=== PATIENT | male | born 1960 | race African-American/Black ===

== ENCOUNTER → 2018-08-23 | Day surgery (SDC) | payer BC ==
[~2018-08-23] MED LIST: AMLODIPINE BESY10 MG PO; ASPIR 8181 MG PO; CRESTOR5 MG PO; FENTANYL CITRATE/PF 100MCG/2 ML INJ ONE; MIDAZOLAM HCL 2 MG/2 ML VIAL ONE; PROPOFOL IV EMULSION 10 MG/ML 50 ML VIAL ONE; VERAPAMIL ER120 MG PO; VESICARE5 MG PO
--- OUTSIDE RECORDS SUMMARY | 2018-08-23 12:54 | XMS REPORT | Clinical Summary ---
Author Author [facility] Organization [facility] Address Unknown Phone Unavailable Care Team Providers Care Second Helper Name Role Phone John Ruiz MD PCP Allergies Comments Active Allergy Reactions Severity Noted Date Morphine 04/24/2018 Medications End Date Status Medication Sig Dispensed Refills Start Date Active ranitidine (ZANTAC) 150 Take 150 mg 0 MG tablet by mouth 2 (two) times a day. Active fluticasone (FLONASE) 50 2 sprays (100 15.8 mL 0 mcg/actuation nasal spray mcg total) by 8 Each Nare route daily. Active azelastine (ASTELIN) 137 1 spray into 0 mcg (0.1 %) nasal spray each nostril 2 (two) times a day. Use in each nostril as directed 08/25/2018 Active predniSONE (DELTASONE) 5 2 tablets 15 tablet 0 mg tablet daily for 5 8 days then 1 tablet daily for 5 days 05/31/2018 Discontinued omeprazole (PriLOSEC) 40 Take 40 mg by 0 MG capsule mouth daily. 05/31/2018 Discontinued verapamil sustained Take 180 mg 0 release (CALAN-SR) 180 MG by mouth SR tablet nightly. 05/24/2018 levocetirizine (XYZAL) 5 Take 1 tablet 30 tablet 3 MG tablet (5 mg total) 8 by mouth every evening for 30 days. 05/24/2018 montelukast (SINGULAIR) Take 1 tablet 30 tablet 3 10 mg tablet (10 mg total) 8 by mouth nightly for 30 days. 05/24/2018 azelastine (ASTELIN) 137 1 spray into 30 mL 3 mcg (0.1 %) nasal spray each nostril 8 2 (two) times a day for 30 days. Use in each nostril as directed 07/29/2018 Discontinued lisinopril Take 20 mg by 5 (PRINIVIL,ZESTRIL) 20 mg mouth every 8 tablet morning. 06/30/2018 [id number] Inhale 1 puff 30 each 3 anter (TRELEGY ELLIPTA) daily for 30 8 100-62.5-25 mcg blister days. with device 06/14/2018 predniSONE (DELTASONE) 10 Po 40 mg x 3 32 tablet 0 mg tablet days, 30 mg x 8 3 days, 20 mg x 3 days 10 mg x 3 days 5 mg x 3 days 2.5 mg x 3 days 08/02/2018 predniSONE (DELTASONE) 10 Po 40 mg x 3 32 tablet 0 mg tablet days, 30 mg x 8 3 days, 20 mg x 3 days 10 mg x 3 days 5 mg x 3 days 2.5 mg x 3 days Active Problems Problem Noted Date Essential hypertension 05/31/2018 Dyspnea 04/24/2018 Chronic cough 04/24/2018 Encounters Care Team Description Date Type Specialty Sanjuana Castro MA 08/15/2018 Orders Only Pulmonology Jay Jaimes MD 08/13/2018 Refill Pulmonology Jay Jaimes MD 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 (Primary Dx); Allergic sinusitis 07/29/2018 Office Visit Pulmonology Sheri Ann MA 07/17/2018 Telephone Pulmonology Jay Jaimes MD 07/05/2018 Refill Pulmonology Jay Jaimes MD Chronic cough- improved with steroid (Primary Dx); Allergic sinusitis 06/28/2018 Office Visit PulmonJay Mejia MD 06/28/2018 Refill Pulmonology Jay Jaimes MD Chronic cough (Primary Dx); Essential hypertension 06/07/2018 Office Visit Pulmonology Sheri Ann MA 06/06/2018 Orders Only PulJay Cabral MD Chronic cough 06/05/2018 Hospital Radiology Encounter Jay Jaimes MD Chronic cough (Primary Dx); Essential hypertension 05/31/2018 Office Visit Pulmonology Jay Jaimes MD Karlberg, Karl Dyspnea, unspecified type 04/24/2018 Clinical Pulmonology Support Jay Jaimes MD Chronic cough (Primary Dx); Allergic sinusitis 04/24/2018 Office Visit Pulmonology after 08/22/2017 Family History Medical History Relation Name Comments Hypertension Mother Relation Name Status Comments Mother Social History Date Tobacco Use Types Packs/Day Years Used Never Smoker Smokeless Tobacco: Never Used Alcohol Use Drinks/Week oz/Week Comments Yes Social Sex Assigned at Date Recorded Not on file Industry Job Start Date Occupation Not on file Not on file Not on file Travel End Travel History Travel Start No recent travel history available. Last Filed Vital Signs Time Taken Vital Sign Reading 07/29/2018 2:54 PM CDT Blood Pressure 157/84 07/29/2018 2:54 PM CDT Pulse 73 07/29/2018 2:54 PM CDT Temperature 36.4 C (97.6 F) 07/29/2018 2:54 PM CDT Respiratory Rate 14 07/29/2018 2:54 PM CDT Oxygen Saturation 98% - Inhaled Oxygen - Concentration 07/29/2018 2:54 PM CDT Weight 96.2 kg (212 lb) 06/07/2018 12:13 PM CDT Height 170.2 cm (5' 7") 07/29/2018 2:54 PM CDT Body Mass Index 33.2 Plan of Treatment Care Team Description Date Type Specialty Jay Jaimes MD [address] [address] [phone] 09/09/2018 Office Visit Pulmonology Health Maintenance Due Date Last Done Comments MMR VACCINES (1 of - 1960 Standard series) VARICELLA VACCINES (1 of 1972 2 - 2-dose adolescent series) COLON CANCER SCREENING 2009 SHINGRIX VACCINE (1 of 2) 2009 INFLUENZA VACCINE 05/08/2018 HEPATITIS B VACCINES Aged Out No longer eligible based on patient's age to complete this topic IPV VACCINES Aged Out No longer eligible based on patient's age to complete this topic MENINGOCOCCAL VACCINE Aged Out No longer eligible based on patient's age to complete this topic Procedures Comments Procedure Name Priority Date/Time Associated Diagnosis CT CHEST WO CONTRAST Routine 06/05/2018 Chronic cough 3:37 PM CDT after 08/22/2017 Results * CT Chest Wo Contrast (06/05/2018 3:37 PM CDT) Narrative Performed At EXAMINATION: CT CHEST WO CONTRAST [facility] CLINICAL HISTORY: R05 Cough, chronic cough TECHNIQUE:Multiple axial CT images of the chest are obtained without the use of intravenous contrast. The lack of intravenous contrast reduces the sensitivity of the sensitivity of detecting solid organ disease and evaluating vasculature. Sagittal and coronal 3-D reformatted images were obtained. CT scans are performed using radiation dose reduction techniques.Technical factors are evaluated and adjusted to ensure appropriate moderation of exposure.Automated dose management technology is applied to adjust radiation exposure while achieving a diagnostic quality image. COMPARISON: None. FINDINGS: Lungs and large airways: Negative for interstitial lung disease or consolidation. There is a right middle lobe subpleural lung nodule measuring 5 mm (image 64, sequence 3). Pleura:No pleural effusion, pleural thickening, or pneumothorax. Heart and pericardium:Heart size is normal. No pericardial effusion. Vessels:Minimal atherosclerotic changes of thoracic aorta. Main pulmonary artery measures 24 mm. Mediastinum and eleanor:No mass or hematoma. Lymph nodes: Prominent axillary lymph nodes Chest wall:Unremarkable. Bones:No osteolytic or osteoblastic bony lesion. Upper abdomen: Small nonobstructive calculus seen within the upper pole of left kidney measuring 3.6 mm. No focal abnormality detected with limited evaluation. IMPRESSION: 1. Negative for interstitial lung disease or consolidation. 2. Mild atherosclerotic changes of thoracic aorta. 3. Mildly enlarged axillary lymph nodes, most likely benign/reactive. 4. There is a right middle lobe subpleural lung nodule measuring 5 mm (image 64, sequence 3). Finding most likely benign. [id number] Procedure Note Hm Interface, Radiology Results Incoming - 06/05/2018 4:33 PM CDT EXAMINATION: CT CHEST WO CONTRAST CLINICAL HISTORY: R05 Cough, chronic cough TECHNIQUE: Multiple axial CT images of the chest are obtained without the use of intravenous contrast. The lack of intravenous contrast reduces the sensitivity of the sensitivity of detecting solid organ disease and evaluating vasculature. Sagittal and coronal 3-D reformatted images were obtained. CT scans are performed using radiation dose reduction techniques. Technical factors are evaluated and adjusted to ensure appropriate moderation of exposure. Automated dose management technology is applied to adjust radiation exposure while achieving a diagnostic quality image. COMPARISON: None. FINDINGS: Lungs and large airways: Negative for interstitial lung disease or consolidation. There is a right middle lobe subpleural lung nodule measuring 5 mm (image 64, sequence 3). Pleura: No pleural effusion, pleural thickening, or pneumothorax. Heart and pericardium: Heart size is normal. No pericardial effusion. Vessels: Minimal atherosclerotic changes of thoracic aorta. Main pulmonary artery measures 24 mm. Mediastinum and eleanor: No mass or hematoma. Lymph nodes: Prominent axillary lymph nodes Chest wall: Unremarkable. Bones: No osteolytic or osteoblastic bony lesion. Upper abdomen: Small nonobstructive calculus seen within the upper pole of left kidney measuring 3.6 mm. No focal abnormality detected with limited evaluation. IMPRESSION: 1. Negative for interstitial lung disease or consolidation. 2. Mild atherosclerotic changes of thoracic aorta. 3. Mildly enlarged axillary lymph nodes, most likely benign/reactive. 4. There is a right middle lobe subpleural lung nodule measuring 5 mm (image 64, sequence 3). Finding most likely benign. [facility]-[id number] Performing Organization Address City/State/Zipcode Phone Number [facility] [address] [place] [address] after 08/22/2017 Insurance Payer Benefit Subscriber ID Type Phone Address Plan / Group BCBS ANTHALLYSSA xxxxxxxxxxxx O [facility] Advance Directives Patient has advance care planning documents on file. For more information, [place] contact: [facility] [address] [place] [address]
--- OUTSIDE RECORDS SUMMARY | 2018-08-23 12:55 | XMS REPORT | Summary of Care ---
Author Organization Unknown Address Unknown Phone Unavailable Encounter HQ Nellie_rasheed(ELIDIA) [id number] Date(s): 12/08/14 - 12/08/14 [facility] [address] [place] [address]- [phone] Discharge Disposition: Home Physician Attending: Ghassan Plascencia MD Vital Signs No data available for this section Problem List Condition Effective Dates Status Health Status Informant Cancer of Active prostate(Confirmed) HTN - Active Hypertension(Confirm ed) Hydronephrosis(Confi 04/16/10 Active rmed) Right flank 04/16/10 Active pain(Confirmed) Allergies, Adverse Reactions, Alerts Substance Reaction Severity Status codeine Active morphine Active Medications No data available for this section Results No data available for this section Immunizations No data available for this section Procedures No data available for this section Social History Social History Type Response Alcohol Never, Previous treatment: None. Smoking Status Never smoker; Exposure to Tobacco Smoke None; Cigarette Smoking Last 365 Days No; Reg Smoking Cessation Counseling No Assessment and Plan No data available for this section
--- OUTSIDE RECORDS SUMMARY | 2018-08-23 12:55 | XMS REPORT | Continuity of Care Document ---
Author Author [facility] Interface Address Unknown Phone Unavailable Problems Problem Status Onset Date Classification Date Reported Comments Source Acute bronchitis, unspecified 01/23/2018 04/23/2018 [facility] J20.9 - ACUTE BRONCHITIS, UNSPECIFIED I1 Active 01/15/2018 [facility] PROSTATE CA Active 11/12/2014 [facility] NONE Active 10/08/2014 [facility] 592.0 Active 10/08/2014 [facility] UNK Active 09/22/2014 [facility] [id number] Active 09/22/2014 [facility] PROSTATE CA 185 Active 09/10/2014 [facility] Hydronephrosis Active 04/16/2010 Problem 05/29/2016 [facility] Right flank pain Active 04/16/2010 Problem 05/29/2016 [facility] Hydronephrosis Active 04/16/2010 Problem 04/23/2018 [facility] Right flank pain Active 04/16/2010 Problem 04/23/2018 [facility] Cancer of prostate Active Problem 05/29/2016 [facility] HTN - Hypertension Active Problem 05/29/2016 [facility] Cancer of prostate Active Problem 04/23/2018 [facility] HTN - Hypertension Active Problem 04/23/2018 [facility] Essential hypertension 04/23/2018 [facility] MALIGN NEOPL PROSTATE Active [facility] LEFT HIP SX 01/05/16 Active [facility] S/P LT REBECCA Active [facility] Medications Medication Details Route Status Patient Instructions Ordering Provider Order Date Source Ciprofloxacin 500 MG Oral Tablet [Cipro] 500 mg=1 tab, PO, BID, # 2 tab, 0 Refill(s) Active 11/12/2014 [facility] Docusate Sodium 50 MG / sennosides, RESIDENTIAL 8.6 MG Oral Tablet [SENOKOT-S] 2 tab, PO, Bedtime, # 30 tab, 0 Refill(s) Active 11/12/2014 [facility] Ketorolac Tromethamine 30 MG/ML Injectable Solution 30 mg, 1 mL, Route: IV, Drug form: INJ, Q6H, Dosing Weight 93.295, kg, Start date: 11/11/14 12:00:00, Duration: 4 day, Stop date: 11/15/14 6:00:00Notes: (Same as:Toradol) IV bolus must be given >15 seconds. Give IM administration slowly and deeply into the muscle. Not for use > 4 days No Longer Active 11/11/2014 [facility] Enoxaparin 40 mg, 0.4 mL, Route: SUB-Q, Drug form: INJ, [id number], Dosing Weight 93.295, kg, Start date: 11/11/14 6:00:00, Duration: 30 day, Stop date: 12/10/14 6:00:00Notes: (Same as: Lovenox) No Longer Active 11/11/2014 [facility] Famotidine 20 mg, 1 tab, Route: PO, Drug form: TAB, Q12H, Dosing Weight 93.295, kg, Start date: 11/10/14 21:00:00, Duration: 30 day, Stop date: 12/10/14 9:00:00Notes: (Same as: Pepcid) No Longer Active 11/11/2014 [facility] Ketorolac 15 mg, 1 mL, Route: IVP, Drug form: INJ, Q6H, Dosing Weight 93.295, kg, Start date: 11/10/14 18:00:00, Duration: 6 doses or times, Stop date: 11/12/14 0:00:00Notes: (Same as:Toradol) IV bolus must be given >15 seconds. Give IM administration slowly and deeply into the muscle. Not for use > 4 days. Inactive 11/11/2014 [facility] Acetaminophen 10 MG/ML Injectable Solution 1,000 mg, 100 mL, Route: IV, Drug form: INJ, Q6H, Dosing Weight 93.295, kg, For > or=50 kg, Start date: 11/10/14 18:00:00, Duration: 30 day, Stop date: 12/10/14 12:00:00Notes: Infuse over 15 minutes Do not exceed 4gm/day of acetaminophen No Longer Active 11/11/2014 [facility] Docusate Sodium 100 MG Oral Capsule 100 mg, 1 cap, Route: PO, Drug form: CAP, BID, Dosing Weight 93.295, kg, Start date: 11/10/14 17:00:00, Duration: 30 day, Stop date: 12/10/14 9:00:00Notes: (Same as: Colace) (Do Not Crush) No Longer Active 11/10/2014 [facility] 10 ML Cefazolin 100 MG/ML Prefilled Syringe 1 gm, 100 mL, Route: IVPB, Drug form: INJ, Q8H, Dosing Weight 93.295, kg, Start date: 11/10/14 16:00:00, Duration: 1 doses or times, Stop date: 11/10/14 16:00:00 Inactive 11/10/2014 [facility] Hydralazine 10 mg, Route: IVP, Q20Min, Dosing Weight 93.295, kg, PRN Elevated BP, Start date: 11/10/14 13:02:00, Duration: 2 doses or times, Stop date: Limited # of times Inactive 11/10/2014 [facility] Labetalol 10 mg, Route: IVP, Q5Min, Dosing Weight 93.295, kg, PRN Elevated BP, Start date: 11/10/14 13:02:00, Duration: 5 doses or times, Stop date: Limited # of times Inactive 11/10/2014 [facility] Fentanyl 25 microgram, Route: IVP, Q5Min, Dosing Weight 93.295, kg, PRN Pain Score 4-6, Start date: 11/10/14 13:02:00, Duration: 4 doses or times, Stop date: Limited # of times Inactive 11/10/2014 [facility] Hydromorphone 0.5 mg, Route: IVP, Q5Min, Dosing Weight 93.295, kg, PRN Pain Score 7-10, Start date: 11/10/14 13:02:00, Duration: 4 doses or times, Stop date: Limited # of times Inactive 11/10/2014 [facility] Flumazenil 0.2 mg, Route: IVP, PRN, Dosing Weight 93.295, kg, PRN Benzodiazepine Reversal, Initial dose, Start date: 11/10/14 13:02:00, Duration: 30 day, Stop date: 12/10/14 13:01:00 Inactive 11/10/2014 [facility] Naloxone 0.04 mg, Route: IVP, Q2MIN, Dosing Weight 93.295, kg, PRN Narcotic Reversal, Start date: 11/10/14 13:02:00, Duration: 8 doses or times, Stop date: Limited # of times Inactive 11/10/2014 [facility] Ondansetron 4 mg, Route: IVP, ONCE, Dosing Weight 93.295, kg, PRN Nausea & Vomiting, Start date: 11/10/14 13:02:00 Inactive 11/10/2014 [facility] Enoxaparin 40 mg, Route: SUB-Q, Drug form: INJ, [id number], Dosing Weight 93.295, kg, Start date: 11/10/14 13:00:00, Duration: 30 day, Stop date: 12/09/14 13:00:00 Inactive 11/10/2014 [facility] Oxycodone Hydrochloride 5 MG Oral Tablet 5 mg, 1 tab, Route: PO, Drug form: TAB, Q4H, Dosing Weight 93.295, kg, PRN Pain Score 4-6, Start date: 11/10/14 12:50:00, Duration: 30 day, Stop date: 12/10/14 12:49:00Notes: (Same as: Roxicodone) No Longer Active 11/10/2014 [facility] D5NS + KCL 20mEq/L 1000ml (Premix) 1,000 mL 1,000 mL, Rate: 125 ml/hr, Infuse over: 8 hr, Route: IV, Dosing Weight 93.295 kg, Total Volume: 1,000, Start date: 11/10/14 12:48:00, Duration: 30 day, Stop date: 12/10/14 12:47:00Notes: PREMIX IV - Do Not Alter No Longer Active 11/10/2014 [facility] Saline Flush 0.9% 10 ml, Route: IVP, Drug Form: INJ, Dosing Weight 93.295, kg, PRN, PRN Line Flush, Start date: 11/10/14 12:48:00, Duration: 30 day, Stop date: 12/10/14 12:47:00Notes: (Same as: BD Posiflush) No Longer Active 11/10/2014 [facility] zolpidem 5 mg, 1 tab, Route: PO, Drug form: TAB, Bedtime, Dosing Weight 93.295, kg, PRN Insomnia, Start date: 11/10/14 12:48:00, Duration: 30 day, Stop date: 12/10/14 12:47:00Notes: (Same As: Ambien) No Longer Active 11/10/2014 [facility] Ondansetron 4 mg, 2 mL, Route: IVP, Drug form: INJ, Q6H, Dosing Weight 93.295, kg, PRN Nausea & Vomiting, Start date: 11/10/14 12:48:00, Duration: 30 day, Stop date: 12/10/14 12:47:00Notes: (Same as: Zofran) No Longer Active 11/10/2014 [facility] Promethazine 12.5 mg, 0.5 mL, Route: IVPB, Q4H, Dosing Weight 93.295, kg, PRN Nausea & Vomiting, Start date: 11/10/14 12:48:00, Duration: 30 day, Stop date: 12/10/14 12:47:00Notes: Do not give IV push. (Same as: Phenergan) No Longer Active 11/10/2014 [facility] Dulcolax Laxative 5 mg, 1 tab, Route: PO, Drug form: ECTAB, Q24H, Dosing Weight 93.295, kg, PRN Constipation, Start date: 11/10/14 12:48:00, Duration: 30 day, Stop date: 12/10/14 12:47:00Notes: (Same As: Dulcolax, Correctol) (Do Not Crush) "Do Not Crush" No Longer Active 11/10/2014 [facility] Hydromorphone 0.3 mg, 0.3 mL, Route: IVP, Drug form: INJ, Q3H, Dosing Weight 93.295, kg, PRN Pain Score 4-6, Start date: 11/10/14 12:48:00, Duration: 30 day, Stop date: 12/10/14 12:47:00 No Longer Active 11/10/2014 [facility] Diphenhydramine 25 mg, 1 tab, Route: PO, Drug form: TAB, Bedtime, Dosing Weight 93.295, kg, PRN Insomnia, Start date: 11/10/14 12:48:00, Duration: 30 day, Stop date: 12/10/14 12:47:00 No Longer Active 11/10/2014 [facility] heparin, porcine 5,000 unit, Route: SUB-Q, ONCE, Dosing Weight 93.295, kg, Start date: 11/10/14 8:24:00, Stop date: 11/10/14 8:24:00 Inactive 11/10/2014 [facility] Calcium Chloride 0.0014 MEQ/ML / Potassium Chloride 0.004 MEQ/ML / Sodium Chloride 0.103 MEQ/ML / Sodium Lactate 0.028 MEQ/ML Injectable Solution 1,000 mL, Rate: 25 ml/hr, Infuse over: 40 hr, Route: IV, Dosing Weight 93.295 kg, Total Volume: 1,000, Start date: 11/10/14 7:31:00, Duration: 30 day, Stop date: 12/10/14 7:30:00 Inactive 11/10/2014 [facility] Ancef 2 gm, Route: IVPB, ONCE, Dosing Weight 93.295, kg, Start date: 11/10/14 7:30:00, Stop date: 11/10/14 7:30:00 Inactive 11/10/2014 [facility] Ciprofloxacin 2 MG/ML Injectable Solution 400 mg, Route: IVPB, ONCE, Dosing Weight 93.295, kg, Start date: 11/10/14 7:30:00, Stop date: 11/10/14 7:30:00 Inactive 11/10/2014 [facility] tadalafil 5 MG Oral Tablet [Cialis] 5 mg=1 tab, PO, Daily, for erectile dysfunction, 0 Refill(s) Active 11/03/2014 [facility] verapamil 120 mg oral capsule, extended release =1 cap, PO, Daily, # 30 cap, 0 Refill(s) Active 11/03/2014 [facility] Allergies, Adverse Reactions, Alerts Substance Category Reaction Severity Reaction type Status Date Reported Comments Source codeine Assertion Drug allergy Active [facility] morphine Assertion Drug allergy Active [facility] Immunizations Immunization Date Given Site Status Last Updated Comments Source Results Order Name Results Value Reference Range Date Interpretation Comments Source Chest 2 views DX Chest 2 views DX Chest 2 views DX CLINICAL HISTORY: - HTN/BRONCHITIS COMPARISON: 11/03/2014 FINDINGS: SUPPORT DEVICES: none LUNGS: Lungs are reasonably well inflated. No consolidation or any significant effusion. No pneumothorax is evident. CARDIOVASCULAR: Cardiac silhouette size is normal. Pulmonary vasculature is within normal limits. MEDIASTINUM/VICKIE: Trachea is midline. No contour abnormality is noted. OSSEOUS STRUCTURES: No acute bony abnormality is noted. SOFT TISSUES: No significant soft tissue abnormality is noted. IMPRESSION: No acute abnormality is noted. SL: [id number] 01/15/2018 - - Read by: Lm Dumont MD Dictated Date/time: 01/15/18 16:31 Electronically Signed by: Lm Dumont MD 01/15/18 16:32 FINAL REPORT [facility] [place] Abdomen AP DX Abdomen AP DX ABDOMINAL RADIOGRAPH SINGLE VIEW INDICATION: 593.3 Stricture or Kinking of Ureter, 185 Malignant Neoplasm of Prostate COMPARISON: None FINDINGS: A moderate amount of stool is present throughout the abdomen. There is no bowel dilatation. There is no evidence of pneumoperitoneum. No definite potential cholelithiasis or urolithiasis are seen. 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 IMPRESSION: No acute intra-abdominal abnormalities are visualized. SL: 16 12/08/2014 - - Read by: Miguel Ángel Mariscal MD Dictated Date/time: 12/08/14 10:53 Electronically Signed by: Miguel Ángel Mariscal MD 12/08/14 10:55 FINAL REPORT [facility] Cystogram DX Cystogram DX HISTORY: Status post prostatectomy, prostate cancer. Cystogram performed through existing Toro catheter. The patient could tolerate only 175 cc of contrast. Opacified urinary bladder appears otherwise normal. No extravasation noted. The post void image demonstrates complete bladder emptying. IMPRESSION: No extravasation noted. Unremarkable postoperative study. Total fluoroscopy time 56 seconds. SL:13 11/18/2014 - - Read by: Alex Corral MD Dictated Date/time: 11/18/14 10:41 Electronically Signed by: Alex Corral MD 11/18/14 10:42 FINAL REPORT [facility] CHEM PANEL A/G Ratio 0.9 0.7 - 1.6 11/11/2014 [facility] CHEM PANEL Globulin 3.1 g/dL 2.0 - 4.0 11/11/2014 [facility] CHEM PANEL AGAP 8.5 meq/L 10.0 - 20.0 11/11/2014 [facility] CHEM PANEL B/C Ratio 10 6 - 25 11/11/2014 [facility] CHEM PANEL Sodium Lvl 141 meq/L 135 - 145 11/11/2014 [facility] CHEM PANEL Potassium Lvl 3.5 meq/L 3.5 - 5.1 11/11/2014 [facility] CHEM PANEL Chloride Lvl 109 meq/L 95 - 109 11/11/2014 [facility] CHEM PANEL eGFR 71 mL/min/1.73m2 11/11/2014 1Result Comment: The eGFR is calculated using the CKD-EPI formula. In most young, healthy individuals the eGFR will be >90 mL/min/1.73m2. The eGFR declines with age. An eGFR of 60-89 may be normal in some populations, particularly the elderly, for whom the CKD-EPI formula has not been extensively validated. Use of the eGFR is not recommended in the following populations: Individuals with unstable creatinine concentrations, including patients and those with serious co-morbid conditions. Patients with extremes in muscle mass or diet. The data above are obtained from the National Kidney Disease Education Program (NKDEP) which additionally recommends that when the eGFR is used in patients with extremes of body mass index for purposes of drug dosing, the eGFR should be multiplied by the estimated BMI. [facility] CHEM PANEL AST 36 unit/L 0 - 37 11/11/2014 [facility] CHEM PANEL Alk Phos 59 unit/L 39 - 136 11/11/2014 [facility] CHEM PANEL Bili Total 0.8 mg/dL 0.2 - 1.3 11/11/2014 [facility] CHEM PANEL ALT 20 unit/L 0 - 65 11/11/2014 [facility] CHEM PANEL Albumin Lvl 2.8 g/dL 3.5 - 5.0 11/11/2014 [facility] CHEM PANEL BUN 13 mg/dL 7 - 22 11/11/2014 [facility] CHEM PANEL Glucose Lvl 97 mg/dL 70 - 99 11/11/2014 4Interpretive Data: Adult reference range values reflect the clinical guidelines of the [place] [employer]. [facility] CHEM PANEL Total Protein 5.9 g/dL 6.4 - 8.4 11/11/2014 [facility] CHEM PANEL Calcium Lvl 7.7 mg/dL 8.5 - 10.5 11/11/2014 [facility] CHEM PANEL CO2 27 meq/L 24 - 32 11/11/2014 [facility] CHEM PANEL Creatinine Lvl 1.3 mg/dL 0.5 - 1.4 11/11/2014 [facility] HEMATOLOGY Platelet 235 K/CMM 133 - 450 11/11/2014 [facility] HEMATOLOGY RDW 14.5 % 11.5 - 14.5 11/11/2014 [facility] HEMATOLOGY MCH 29.3 pg 27.0 - 31.0 11/11/2014 [facility] HEMATOLOGY MCHC 33.4 g/dL 32.0 - 36.0 11/11/2014 [facility] HEMATOLOGY MPV 7.5 fL 7.4 - 10.4 11/11/2014 [facility] HEMATOLOGY Hct 32.3 % 42.0 - 54.0 11/11/2014 [facility] HEMATOLOGY Hgb 10.8 g/dL 14.0 - 18.0 11/11/2014 [facility] HEMATOLOGY RBC 3.68 M/CMM 4.70 - 6.10 11/11/2014 [facility] HEMATOLOGY WBC 7.8 K/CMM 3.7 - 10.4 11/11/2014 [facility] HEMATOLOGY MCV 87.8 fL 80.0 - 94.0 11/11/2014 [facility] HEMATOLOGY Segs 68.5 % 45.0 - 75.0 11/11/2014 [facility] HEMATOLOGY Lymphocytes 21.7 % 20.0 - 40.0 11/11/2014 [facility] HEMATOLOGY Monocytes 9.0 % 2.0 - 12.0 11/11/2014 [facility] HEMATOLOGY Eosinophils 0.3 % 0.0 - 4.0 11/11/2014 [facility] HEMATOLOGY Basophils 0.5 % 0.0 - 1.0 11/11/2014 [facility] HEMATOLOGY Lymphocytes # 1.7 K/CMM 1.0 - 5.5 11/11/2014 [facility] HEMATOLOGY Monocytes # 0.7 K/CMM 0.0 - 0.8 11/11/2014 [facility] HEMATOLOGY Segs-Bands # 5.4 K/CMM 1.5 - 8.1 11/11/2014 [facility] ELECTROLYTES AGAP 11.0 meq/L 10.0 - 20.0 11/11/2014 [facility] ELECTROLYTES Potassium Lvl 4.0 meq/L 3.5 - 5.1 11/11/2014 [facility] ELECTROLYTES Chloride Lvl 107 meq/L 95 - 109 11/11/2014 [facility] ELECTROLYTES Sodium Lvl 141 meq/L 135 - 145 11/11/2014 [facility] ELECTROLYTES Glucose Lvl 126 mg/dL 70 - 99 11/11/2014 5Interpretive Data: Adult reference range values reflect the clinical guidelines of the [place] [employer]. [facility] ELECTROLYTES BUN 13 mg/dL 7 - 22 11/11/2014 [facility] ELECTROLYTES Creatinine Lvl 1.5 mg/dL 0.5 - 1.4 11/11/2014 [facility] ELECTROLYTES CO2 27 meq/L 24 - 32 11/11/2014 [facility] ELECTROLYTES eGFR 60 mL/min/1.73m2 11/11/2014 2Result Comment: The eGFR is calculated using the CKD-EPI formula. In most young, healthy individuals the eGFR will be >90 mL/min/1.73m2. The eGFR declines with age. An eGFR of 60-89 may be normal in some populations, particularly the elderly, for whom the CKD-EPI formula has not been extensively validated. Use of the eGFR is not recommended in the following populations: Individuals with unstable creatinine concentrations, including patients and those with serious co-morbid conditions. Patients with extremes in muscle mass or diet. The data above are obtained from the National Kidney Disease Education Program (NKDEP) which additionally recommends that when the eGFR is used in patients with extremes of body mass index for purposes of drug dosing, the eGFR should be multiplied by the estimated BMI. [facility] ELECTROLYTES Calcium Lvl 8.1 mg/dL 8.5 - 10.5 11/11/2014 [facility] MPV 7.7 fL 7.4 - 10.4 11/11/2014 [facility] RBC 3.95 M/CMM 4.70 - 6.10 11/11/2014 [facility] Hct 34.5 % 42.0 - 54.0 11/11/2014 [facility] Hgb 11.5 g/dL 14.0 - 18.0 11/11/2014 [facility] MCH 29.1 pg 27.0 - 31.0 11/11/2014 [facility] MCV 87.4 fL 80.0 - 94.0 11/11/2014 [facility] WBC 11.1 K/CMM 3.7 - 10.4 11/11/2014 [facility] RDW 14.3 % 11.5 - 14.5 11/11/2014 [facility] MCHC 33.3 g/dL 32.0 - 36.0 11/11/2014 [facility] Platelet 277 K/CMM 133 - 450 11/11/2014 [facility] HEMATOLOGY PTT 26.9 s 22.9 - 35.8 11/11/2014 8Interpretive Data: Heparin Therapeutic Range: 57 - 92 Seconds [facility] BLOOD BANK RESULTS Antibody Scrn Negative (11/03/14 4:28 PM) 11/03/2014 [facility] BLOOD BANK RESULTS ABO/Rh O POS 11/03/2014 [facility] ELECTROLYTES AGAP 11.0 meq/L 10.0 - 20.0 11/03/2014 [facility] ELECTROLYTES Potassium Lvl 5.0 meq/L 3.5 - 5.1 11/03/2014 [facility] ELECTROLYTES Chloride Lvl 103 meq/L 95 - 109 11/03/2014 [facility] ELECTROLYTES Sodium Lvl 140 meq/L 135 - 145 11/03/2014 [facility] ELECTROLYTES eGFR 98 mL/min/1.73m2 11/03/2014 3Result Comment: The eGFR is calculated using the CKD-EPI formula. In most young, healthy individuals the eGFR will be >90 mL/min/1.73m2. The eGFR declines with age. An eGFR of 60-89 may be normal in some populations, particularly the elderly, for whom the CKD-EPI formula has not been extensively validated. Use of the eGFR is not recommended in the following populations: Individuals with unstable creatinine concentrations, including patients and those with serious co-morbid conditions. Patients with extremes in muscle mass or diet. The data above are obtained from the National Kidney Disease Education Program (NKDEP) which additionally recommends that when the eGFR is used in patients with extremes of body mass index for purposes of drug dosing, the eGFR should be multiplied by the estimated BMI. [facility] ELECTROLYTES Calcium Lvl 8.7 mg/dL 8.5 - 10.5 11/03/2014 [facility] ELECTROLYTES Glucose Lvl 59 mg/dL 70 - 99 11/03/2014 6Interpretive Data: Adult reference range values reflect the clinical guidelines of the [place] [employer]. [facility] ELECTROLYTES BUN 13 mg/dL 7 - 22 11/03/2014 [facility] ELECTROLYTES Creatinine Lvl 1.0 mg/dL 0.5 - 1.4 11/03/2014 [facility] ELECTROLYTES CO2 31 meq/L 24 - 32 11/03/2014 [facility] HEMATOLOGY Eosinophils # 0.2 K/CMM 0.0 - 0.5 11/03/2014 [facility] HEMATOLOGY Monocytes # 0.6 K/CMM 0.0 - 0.8 11/03/2014 [facility] HEMATOLOGY Basophils # 0.1 K/CMM 0.0 - 0.2 11/03/2014 [facility] Basophils 0.9 % 0.0 - 1.0 11/03/2014 [facility] HEMATOLOGY Lymphocytes # 2.6 K/CMM 1.0 - 5.5 11/03/2014 [facility] Segs-Bands # 3.2 K/CMM 1.5 - 8.1 11/03/2014 [facility] Lymphocytes 38.7 % 20.0 - 40.0 11/03/2014 [facility] Eosinophils 2.3 % 0.0 - 4.0 11/03/2014 [facility] Monocytes 9.2 % 2.0 - 12.0 11/03/2014 [facility] Segs 48.9 % 45.0 - 75.0 11/03/2014 [facility] Plt Morph Normal (11/03/14 4:28 PM) 11/03/2014 [facility] RBC Morph Normal (11/03/14 4:28 PM) 11/03/2014 [facility] MPV 9.0 fL 7.4 - 10.4 11/03/2014 [facility] RBC 4.14 M/CMM 4.70 - 6.10 11/03/2014 [facility] Hct 36.6 % 42.0 - 54.0 11/03/2014 [facility] Hgb 12.1 g/dL 14.0 - 18.0 11/03/2014 [facility] MCV 88.5 fL 80.0 - 94.0 11/03/2014 [facility] MCH 29.3 pg 27.0 - 31.0 11/03/2014 [facility] MCHC 33.1 g/dL 32.0 - 36.0 11/03/2014 [facility] Platelet 272 K/CMM 133 - 450 11/03/2014 [facility] RDW 14.5 % 11.5 - 14.5 11/03/2014 [facility] WBC 6.6 K/CMM 3.7 - 10.4 11/03/2014 [facility] SPECIAL CHEMISTRY PSA 5.25 ng/mL 0.00 - 4.00 11/03/2014 7Interpretive Data: 0-4 ng/ml is clinically accepted reference range from the [place] [employer] in 1997 for Total PSA. A PSA value in the range of 0.1 to 0.6 ng/mL is indeterminate if being used as an indicator of recurrent or residual disease. [facility] URINE AND STOOL UA Urobilinogen <=1.0 mg/dL 0.1 - 1.0 11/03/2014 [facility] URINE AND STOOL UA Color Ltyellow 11/03/2014 [facility] URINE AND STOOL UA Sq Epi None Seen 11/03/2014 [facility] URINE AND STOOL UA pH 7.0 5.0 - 8.0 11/03/2014 [facility] URINE AND STOOL UA Spec Grav 1.011 <=1.030 11/03/2014 [facility] URINE AND STOOL UA Ketones Negative mg/dL Negative mg/dL 11/03/2014 [facility] URINE AND STOOL UA Protein Negative mg/dL Negative mg/dL 11/03/2014 [facility] URINE AND STOOL UA Glucose Negative mg/dL Negative mg/dL 11/03/2014 [facility] URINE AND STOOL UA Nitrite Negative (11/03/14 4:28 PM) Negative 11/03/2014 [facility] URINE AND STOOL UA Bili Negative *NA* (11/03/14 4:28 PM) Negative 11/03/2014 [facility] URINE AND STOOL UA Blood Negative (11/03/14 4:28 PM) Negative 11/03/2014 [facility] URINE AND STOOL UA Leuk Est Negative (11/03/14 4:28 PM) Negative 11/03/2014 [facility] URINE AND STOOL UA WBC null 0 - 5 11/03/2014 [facility] URINE AND STOOL UA Turbidity Clear (11/03/14 4:28 PM) Clear 11/03/2014 [facility] URINE AND STOOL UA RBC 2 /HPF 0 - 2 11/03/2014 [facility] BLOOD BANK RESULTS RBC product Product available (11/03/14 3:59 PM) 11/03/2014 [facility] Chest 2 views Chest 2 views CHEST, PA AND LATERAL. INDICATION: Cough, prostate cancer. Cardiac size is normal. The thoracic aorta is slightly ectatic. The lungs are normally inflated and appear clear. No vascular congestion or pleural effusion is seen. Minor thoracic spondylosis is noted. IMPRESSION: No significant abnormality. SL: 12 11/03/2014 - - Read by: Jose Chung MD Dictated Date/time: 11/03/14 17:22 Electronically Signed by: Jose Chung MD 11/03/14 17:23 FINAL REPORT [facility] Bone scan NM Bone scan NM REASON FOR EXAMINATION: Prostate cancer COMPARISON: None. TECHNIQUE: Approximately 4 hours after the intravenous administration of 26 mCi of technetium 99m MDP, delayed whole-body images were obtained in the anterior and posterior projections. FINDINGS: Scattered areas of mild increased uptake in the region of the right patella as well as medial femorotibial compartment of the left knee are seen, compatible with degenerative change. Increased uptake in the region of the left maxilla is seen, likely secondary to periodontal disease. Scattered areas of irregular uptake are noted in the skin of the medial proximal right thigh as well as distal right leg, likely related to urinary contamination. Normal soft tissue, renal, and bladder activity is identified. IMPRESSION: 1. No definitive evidence of osteoblastic metastatic disease. SL: 16 09/18/2014 - - Read by: John Morales MD Dictated Date/time: 09/18/14 13:57 Electronically Signed by: John Morales MD 09/18/14 13:59 FINAL REPORT [facility] Vital Signs Vital Sign Value Date Comments Source Diastolic (mm Hg) 92 11/12/2014 [facility] Systolic (mm Hg) 156 11/12/2014 [facility] Heart Rate 113 11/12/2014 [facility] Respitory Rate 18 11/12/2014 [facility] Temperature Oral (F) 98.8 F 11/12/2014 [facility] Respitory Rate 18 11/12/2014 [facility] Respitory Rate 16 11/12/2014 [facility] Systolic (mm Hg) 156 11/12/2014 [facility] Heart Rate 71 11/12/2014 [facility] Diastolic (mm Hg) 91 11/12/2014 [facility] Temperature Oral (F) 98.4 F 11/12/2014 [facility] Systolic (mm Hg) 167 11/12/2014 [facility] Diastolic (mm Hg) 103 11/12/2014 [facility] Heart Rate 77 11/12/2014 [facility] Temperature Oral (F) 98.4 F 11/12/2014 [facility] Height 167.64 cm 11/03/2014 [facility] Weight 93.295 11/03/2014 [facility] BMI Calculated 33.2 11/03/2014 [facility] Encounters Location Location Details Encounter Type Encounter Number Reason For Visit Attending Provider ADM Date DC Date Status Source [facility] Outpatient [id number] Catracho Vazquez 09/18/2014 09/19/2014 [facility] Inpatient [id number] Ghassan Plascencia 11/10/2014 11/12/2014 [facility] Outpatient [id number] Ghassan Vemana 11/18/2014 11/19/2014 [facility] Outpatient [id number] Ghassan Vemana 12/08/2014 12/09/2014 [facility] OP Therapy Patients [id number] José Luis Jainmouth 02/23/2016 03/24/2016 [facility] OP Therapy Patients [id number] José Luis Woods 03/28/2016 04/27/2016 [facility] OP Therapy Patients [id number] José Luis Jainmouth 04/27/2016 05/27/2016 [facility] Outpatient Imaging [facility] [id number] John Ruiz 01/15/2018 01/16/2018 [facility] Procedures Procedure Code Date Perfomer Comments Source Arthroscopy of knee [id number] [facility] Arthroscopy of knee [id number] [facility] Arthroscopy of knee [id number] [facility]
--- OUTSIDE RECORDS SUMMARY | 2018-08-23 12:55 | XMS REPORT | Summary of Care ---
Author Organization Unknown Address Unknown Phone Unavailable Encounter HQ Nellie_dannielleflora(ELIDIA) [id number] Date(s): 09/18/14 - 09/18/14 [facility] [address] Discharge Disposition: Home Physician Attending: Catracho Vazquez MD Physician_Referring: Catracho Vazquez MD Reason for Visit PROSTATE [place] 185 Problem List Condition Effective Dates Status Health Status Informant Hydronephrosis(Confi 04/16/10 Active rmed) Right flank 04/16/10 Active pain(Confirmed) Allergies, Adverse Reactions, Alerts Substance Reaction Severity Status codeine Active morphine Active Medications No data available for this section Medications Administered During Your Visit No data available for this section Immunizations No data available for this section
--- OUTSIDE RECORDS SUMMARY | 2018-08-23 12:55 | XMS REPORT | Summary of Care ---
Author Organization Unknown Address Unknown Phone Unavailable Encounter HQ Nellie_rasheed(ELIDIA) [id number] Date(s): 11/18/14 - 11/18/14 [facility] [address] [address], [place] [address] [facility] Discharge Disposition: Home Physician Attending: Ghassan Plascencia MD Physician_Referring: Ghassan Plascencia MD Reason for Visit PROSTATE [place] Problem List Condition Effective Dates Status Health [...] Immunizations No data available for this section Social History Social History Type Response Alcohol Use: Never, Previous treatment: None Smoking Status Never smoker, Exposure to Tobacco Smoke None, Cigarette Smoking Last 365 Days No, Reg Smoking Cessation Counseling No
--- OUTSIDE RECORDS SUMMARY | 2018-08-23 12:55 | XMS REPORT | Summary of Care ---
Author Author [facility] Unknown Phone Unavailable Encounter HQ Encntr_rasheed(FIN) [id number] Date(s): 04/27/16 - 05/26/16 [facility] Discharge Disposition: Home or Self Care Attending Physician: José Luis Woods MD Vital Signs No data available for [...] No data available for this section Procedures Procedure Date Related Diagnosis Body Site Arthroscopy of knee Social History Social History Type Response Alcohol Never, Previous treatment: None. Smoking Status Never smoker; Exposure to Tobacco Smoke None; Cigarette Smoking Last 365 Days No; Reg Smoking Cessation Counseling No Assessment and Plan No data available for this section
--- OUTSIDE RECORDS SUMMARY | 2018-08-23 12:55 | XMS REPORT | Summary of Care ---
Author Author [facility] Outpatient Imaging [facility]patient [facility] [place] Address Unknown Phone Unavailable Encounter HQ Esvin(FIN) [id number] Date(s): 01/15/18 - 01/15/18 [facility] Outpatient [facility] [place] [address] [address] [address] [facility] [place], [place] [address]- [phone] Discharge Disposition: Home or Self Care Attending Physician: John Ruiz MD Vital Signs No data available for [...] Procedures Procedure Date Related Diagnosis Body Site Status Arthroscopy of knee Completed Social History Social History Type Response Alcohol Never, Previous treatment: None. Smoking Status Never smoker; Exposure to Tobacco Smoke None; Cigarette Smoking Last 365 Days No; Reg Smoking Cessation Counseling No entered on: 11/10/14 Assessment and Plan No data available for this section
--- OUTSIDE RECORDS SUMMARY | 2018-08-23 12:55 | XMS REPORT | Summary of Care ---
Author Author [facility] Address Unknown Phone Unavailable Encounter HQ Encntr_rasheed(FIN) [id number] Date(s): 02/23/16 - 03/23/16 [facility] Discharge Disposition: Home Attending Physician: José Luis Woods MD Vital [...]
--- OUTSIDE RECORDS SUMMARY | 2018-08-23 12:55 | XMS REPORT | Summary of Care ---
Author Author [facility] Outpatient Imaging [facility] Outpatient Imaging [place] Address Unknown Phone Unavailable Encounter HQ Nellie_rasheed(FIN) [id number] Date(s): 01/15/18 - 01/15/18 [facility] Outpatient Imaging [place] [address] [address] [facility] [place] [facility], [address] [place], [place] [address]- [phone] Encounter Diagnosis Acute bronchitis, unspecified (Final) - 01/22/18 Essential (primary) hypertension (Final) - Discharge Disposition: Home or Self Care Attending [...]
--- OUTSIDE RECORDS SUMMARY | 2018-08-23 12:55 | XMS REPORT | Summary of Care ---
Author Author [facility] Address Unknown Phone Unavailable Encounter HQ Encntr_rasheed(FIN) [id number] Date(s): 03/28/16 - 04/26/16 [facility] Discharge Disposition: Home or Self Care Attending [...]
--- OUTSIDE RECORDS SUMMARY | 2018-08-23 12:55 | XMS REPORT | Summary of Care ---
Author Organization Unknown Address Unknown Phone Unavailable Encounter BEBE Mcallister(ELIDIA) [id number] Date(s): 11/10/14 - 11/12/14 [facility] [address] [place] [place] [address] [place] [facility] Discharge Disposition: Home Physician Attending: Ghassan Plascencia MD Physician Admitting: Ghassan Plascencia MD Physician_Referring: Ghassan Plascencia MD Reason for Visit [phone] Vital Signs 1 2 3 Most recent to oldest [Reference Range]: 167.64 cm (11/03/14 3:55 PM) Height 98.8 DegF (11/12/14 11:29 AM) 98.4 DegF (11/12/14 7:30 AM) 98.4 DegF (11/12/14 5:36 AM) Temperature Oral [96.4-99.1 DegF] 156 mmHg *HI* (11/12/14 11:29 AM) 156 mmHg *HI* (11/12/14 7:30 AM) 167 mmHg *HI* (11/12/14 5:36 AM) Systolic Blood Pressure [90-140 mmHg] 92 mmHg *HI* (11/12/14 11:29 AM) 91 mmHg *HI* (11/12/14 7:30 AM) 103 mmHg *HI* (11/12/14 5:36 AM) Diastolic Blood Pressure [60-90 mmHg] 18 BRMIN (11/12/14 11:29 AM) 18 BRMIN (11/12/14 7:41 AM) 16 BRMIN (11/12/14 7:30 AM) Respiratory Rate [14-20 BRMIN] 113 bpm *HI* (11/12/14 11:29 AM) 71 bpm (11/12/14 7:30 AM) 77 bpm (11/12/14 5:36 AM) Peripheral Pulse Rate [60-100 bpm] 93.295 kg (1/27/15 3:55 PM) Weight 33.2 m2 (11/03/14 3:55 PM) Body Mass Index Problem List Condition Effective Dates Status Health Status Informant Cancer of Active prostate(Confirmed) HTN - Active Hypertension(Confirm ed) Hydronephrosis(Confi 04/16/10 Active rmed) Right flank 04/16/10 Active pain(Confirmed) Allergies, Adverse Reactions, Alerts Substance Reaction Severity Status codeine Active morphine Active Medications acetaminophen-10 mg/mL INTRAVENOUS solution 1,000 mg, 100 mL, Route: IV, Drug form: INJ, Q6H, Dosing Weight 93.295, kg, For > or=50 kg, Start date: 11/10/14 18:00:00, Duration: 30 day, Stop date: 12/10/14 12:00:00 Notes: Infuse over 15 minutes Do not exceed 4gm/day of acetaminophen Start Date: 11/10/14 Stop Date: 11/12/14 Status: Discontinued Ancef 2 gm, Route: IVPB, ONCE, Dosing Weight 93.295, kg, Start date: 11/10/14 7:30:00, Stop date: 11/10/14 7:30:00 Start Date: 11/10/14 Stop Date: 11/10/14 Status: Completed ceFAZolin (SCIP) 1 gm, 100 mL, Route: IVPB, Drug form: INJ, Q8H, Dosing Weight 93.295, kg, Start date: 11/10/14 16:00:00, Duration: 1 doses or times, Stop date: 11/10/14 16:00:0 0 Start Date: 11/10/14 Stop Date: 11/10/14 Status: Completed Cialis 5 mg oral tablet 5 mg=1 tab, PO, Daily, for erectile dysfunction, 0 Refill(s) Start Date: 11/03/14 Status: Ordered Cipro 500 mg oral tablet 500 mg=1 tab, PO, BID, # 2 tab, 0 Refill(s) Start Date: 11/12/14 Stop Date: 11/13/14 Status: Ordered ciprofloxacin 400 mg/200 mL intravenous solution 400 mg, Route: IVPB, ONCE, Dosing Weight 93.295, kg, Start date: 11/10/14 7:30:0 0, Stop date: 11/10/14 7:30:00 Start Date: 11/10/14 Stop Date: 11/10/14 Status: Completed D5NS + KCL 20mEq/L 1000ml (Premix) 1,000 mL 1,000 mL, Rate: 125 ml/hr, Infuse over: 8 hr, Route: IV, Dosing Weight 93.295 kg , Total Volume: 1,000, Start date: 11/10/14 12:48:00, Duration: 30 day, Stop juan e: 12/10/14 12:47:00 Notes: PREMIX IV - Do Not Alter Start Date: 11/10/14 Stop Date: 11/12/14 Status: Discontinued diphenhydrAMINE 25 mg, 1 tab, Route: PO, Drug form: TAB, Bedtime, Dosing Weight 93.295, kg, PRN Insomnia, Start date: 11/10/14 12:48:00, Duration: 30 day, Stop date: 12/10/14 1 2:47:00 Start Date: 11/10/14 Stop Date: 11/12/14 Status: Discontinued docusate sodium 100 mg oral capsule 100 mg, 1 cap, Route: PO, Drug form: CAP, BID, Dosing Weight 93.295, kg, Start d ate: 11/10/14 17:00:00, Duration: 30 day, Stop date: 12/10/14 9:00:00 Notes: (Same as: Colace) (Do Not Crush) Start Date: 11/10/14 Stop Date: 11/12/14 Status: Discontinued Dulcolax Laxative 5 mg, 1 tab, Route: PO, Drug form: ECTAB, Q24H, Dosing Weight 93.295, kg, PRN Co nstipation, Start date: 11/10/14 12:48:00, Duration: 30 day, Stop date: 12/10/14 12:47:00 Notes: (Same As: Dulcolax, Correctol) (Do Not Crush) "Do Not Crush" Start Date: 11/10/14 Stop Date: 11/12/14 Status: Discontinued enoxaparin 40 mg, Route: SUB-Q, Drug form: INJ, [id number], Dosing Weight 93.295, kg, Start d ate: 11/10/14 13:00:00, Duration: 30 day, Stop date: 12/09/14 13:00:00 Start Date: 11/10/14 Stop Date: 11/10/14 Status: Discontinued enoxaparin 40 mg, 0.4 mL, Route: SUB-Q, Drug form: INJ, [id number], Dosing Weight 93.295, kg, Start date: 11/11/14 6:00:00, Duration: 30 day, Stop date: 12/10/14 6:00:00 Notes: (Same as: Lovenox) Start Date: 11/11/14 Stop Date: 11/12/14 Status: Discontinued famotidine 20 mg, 1 tab, Route: PO, Drug form: TAB, Q12H, Dosing Weight 93.295, kg, Start d ate: 11/10/14 21:00:00, Duration: 30 day, Stop date: 12/10/14 9:00:00 Notes: (Same as: Pepcid) Start Date: 11/10/14 Stop Date: 11/12/14 Status: Discontinued fentaNYL 25 microgram, Route: IVP, Q5Min, Dosing Weight 93.295, kg, PRN Pain Score 4-6, S tart date: 11/10/14 13:02:00, Duration: 4 doses or times, Stop date: Limited # o f times Start Date: 11/10/14 Stop Date: 11/10/14 Status: Completed flumazenil 0.2 mg, Route: IVP, PRN, Dosing Weight 93.295, kg, PRN Benzodiazepine Reversal, Initial dose, Start date: 11/10/14 13:02:00, Duration: 30 day, Stop date: 13:01:00 Start Date: 11/10/14 Stop Date: 11/10/14 Status: Discontinued heparin 5,000 unit, Route: SUB-Q, ONCE, Dosing Weight 93.295, kg, Start date: 11/10/14 8 :24:00, Stop date: 11/10/14 8:24:00 Start Date: 11/10/14 Stop Date: 11/10/14 Status: Deleted hydrALAZINE 10 mg, Route: IVP, Q20Min, Dosing Weight 93.295, kg, PRN Elevated BP, Start date : 11/10/14 13:02:00, Duration: 2 doses or times, Stop date: Limited # of times Start Date: 11/10/14 Stop Date: 11/10/14 Status: Discontinued hydromorphone 0.5 mg, Route: IVP, Q5Min, Dosing Weight 93.295, kg, PRN Pain Score 7-10, Start date: 11/10/14 13:02:00, Duration: 4 doses or times, Stop date: Limited # of robles es Start Date: 11/10/14 Stop Date: 11/10/14 Status: Discontinued hydromorphone 0.3 mg, 0.3 mL, Route: IVP, Drug form: INJ, Q3H, Dosing Weight 93.295, kg, PRN P ain Score 4-6, Start date: 11/10/14 12:48:00, Duration: 30 day, Stop date: 12/10 12:47:00 Start Date: 11/10/14 Stop Date: 11/12/14 Status: Discontinued ketorolac 15 mg, 1 mL, Route: IVP, Drug form: INJ, Q6H, Dosing Weight 93.295, kg, Start da te: 11/10/14 18:00:00, Duration: 6 doses or times, Stop date: 11/12/14 0:00:00 Notes: (Same as:Toradol) IV bolus must be given >15 seconds. Give IM administration slowly and deeply into the muscle. Not for use > 4 days. Start Date: 11/10/14 Stop Date: 11/10/14 Status: Discontinued ketorolac 30 mg/mL injectable solution 30 mg, 1 mL, Route: IV, Drug form: INJ, Q6H, Dosing Weight 93.295, kg, Start juan e: 11/11/14 12:00:00, Duration: 4 day, Stop date: 11/15/14 6:00:00 Notes: (Same as:Toradol) IV bolus must be given >15 seconds. Give IM administration slowly and deeply into the muscle. Not for use > 4 days Start Date: 11/11/14 Stop Date: 11/12/14 Status: Discontinued labetalol 10 mg, Route: IVP, Q5Min, Dosing Weight 93.295, kg, PRN Elevated BP, Start date: 11/10/14 13:02:00, Duration: 5 doses or times, Stop date: Limited # of times Start Date: 11/10/14 Stop Date: 11/10/14 Status: Discontinued Lactated Ringers Injection IV 1000 mL 1,000 mL, Rate: 25 ml/hr, Infuse over: 40 hr, Route: IV, Dosing Weight 93.295 kg , Total Volume: 1,000, Start date: 11/10/14 7:31:00, Duration: 30 day, Stop date : 12/10/14 7:30:00 Start Date: 11/10/14 Stop Date: 11/10/14 Status: Discontinued naloxone 0.04 mg, Route: IVP, Q2MIN, Dosing Weight 93.295, kg, PRN Narcotic Reversal, Sta rt date: 11/10/14 13:02:00, Duration: 8 doses or times, Stop date: Limited # of times Start Date: 11/10/14 Stop Date: 11/10/14 Status: Discontinued ondansetron 4 mg, Route: IVP, ONCE, Dosing Weight 93.295, kg, PRN Nausea & Vomiting, Start date: 11/10/14 13:02:00 Start Date: 11/10/14 Stop Date: 11/10/14 Status: Discontinued ondansetron 4 mg, 2 mL, Route: IVP, Drug form: INJ, Q6H, Dosing Weight 93.295, kg, PRN Nause a & Vomiting, Start date: 11/10/14 12:48:00, Duration: 30 day, Stop date: 12/10/14 12:47:00 Notes: (Same as: Zofran) Start Date: 11/10/14 Stop Date: 11/12/14 Status: Discontinued oxyCODONE 5 mg immediate release 5 mg, 1 tab, Route: PO, Drug form: TAB, Q4H, Dosing Weight 93.295, kg, PRN Pain Score 4-6, Start date: 11/10/14 12:50:00, Duration: 30 day, Stop date: 12/10/14 12:49:00 Notes: (Same as: Roxicodone) Start Date: 11/10/14 Stop Date: 11/12/14 Status: Discontinued promethazine + Sodium Chloride 0.9% IV 50 mL 12.5 mg, 0.5 mL, Route: IVPB, Q4H, Dosing Weight 93.295, kg, PRN Nausea & Vomiting, Start date: 11/10/14 12:48:00, Duration: 30 day, Stop date: 12/10/14 12:47:00 Notes: Do not give IV push. (Same as: Phenergan) Start Date: 11/10/14 Stop Date: 11/12/14 Status: Discontinued Saline Flush 0.9% 10 ml, Route: IVP, Drug Form: INJ, Dosing Weight 93.295, kg, PRN, PRN Line Flush , Start date: 11/10/14 12:48:00, Duration: 30 day, Stop date: 12/10/14 12:47:00 Notes: (Same as: BD Posiflush) Start Date: 11/10/14 Stop Date: 11/12/14 Status: Discontinued Senokot S oral tablet 2 tab, PO, Bedtime, # 30 tab, 0 Refill(s) Start Date: 11/12/14 Status: Ordered verapamil 120 mg oral capsule, extended release =1 cap, PO, Daily, # 30 cap, 0 Refill(s) Start Date: 11/03/14 Status: Ordered zolpidem 5 mg, 1 tab, Route: PO, Drug form: TAB, Bedtime, Dosing Weight 93.295, kg, PRN I nsomnia, Start date: 11/10/14 12:48:00, Duration: 30 day, Stop date: 12/10/14 12 :47:00 Notes: (Same As: Ambien) Start Date: 11/10/14 Stop Date: 11/12/14 Status: Discontinued Results BLOOD BANK RESULTS 1 2 3 Most recent to oldest [Reference Range]: O POS *Unknown* (11/03/14 4:28 PM) ABO/Rh Negative (11/03/14 4:28 PM) Antibody Scrn Product available (11/03/14 3:59 PM) RBC product ELECTROLYTES 1 2 3 Most recent to oldest [Reference Range]: 141 mEq/L (11/11/14 5:39 AM) 141 mEq/L (11/10/14 6:56 PM) 140 mEq/L (11/03/14 4:28 PM) Sodium Lvl [135-145 mEq/L] 3.5 mEq/L (11/11/14 5:39 AM) 4.0 mEq/L (11/10/14 6:56 PM) 5.0 mEq/L (11/03/14 4:28 PM) Potassium Lvl [3.5-5.1 mEq/L] 109 mEq/L (11/11/14 5:39 AM) 107 mEq/L (11/10/14 6:56 PM) 103 mEq/L (11/03/14 4:28 PM) Chloride Lvl [95-109 mEq/L] 27 mEq/L (11/11/14 5:39 AM) 27 mEq/L (11/10/14 6:56 PM) 31 mEq/L (11/03/14 4:28 PM) CO2 [24-32 mEq/L] 8.5 mEq/L *LOW* (11/11/14 5:39 AM) 11.0 mEq/L (11/10/14 6:56 PM) 11.0 mEq/L (11/03/14 4:28 PM) AGAP [10.0-20.0 mEq/L] CHEM PANEL 1 2 3 Most recent to oldest [Reference Range]: 1.3 mg/dL (11/11/14 5:39 AM) 1.5 mg/dL *HI* (11/10/14 6:56 PM) 1.0 mg/dL (11/03/14 4:28 PM) Creatinine Lvl [0.5-1.4 mg/dL] 71 mL/min/1.73m2 1 *NA* (11/11/14 5:39 AM) 60 mL/min/1.73m2 2 *NA* (11/10/14 6:56 PM) 98 mL/min/1.73m2 3 *NA* (11/03/14 4:28 PM) eGFR 13 mg/dL (11/11/14 5:39 AM) 13 mg/dL (11/10/14 6:56 PM) 13 mg/dL (11/03/14 4:28 PM) BUN [7-22 mg/dL] 10 (11/11/14 5:39 AM) B/C Ratio [6-25] 97 mg/dL 4 (11/11/14 5:39 AM) 126 mg/dL 5 *HI* (11/10/14 6:56 PM) 59 mg/dL 6 *LOW* (11/03/14 4:28 PM) Glucose Lvl [70-99 mg/dL] 5.9 g/dL *LOW* (11/11/14 5:39 AM) Total Protein [6.4-8.4 g/dL] 2.8 g/dL *LOW* (11/11/14 5:39 AM) Albumin Lvl [3.5-5.0 g/dL] 3.1 g/dL (11/11/14 5:39 AM) Globulin [2.0-4.0 g/dL] 0.9 (11/11/14 5:39 AM) A/G Ratio [0.7-1.6] 7.7 mg/dL *LOW* (11/11/14 5:39 AM) 8.1 mg/dL *LOW* (11/10/14 6:56 PM) 8.7 mg/dL (11/03/14 4:28 PM) Calcium Lvl [8.5-10.5 mg/dL] 20 unit/L (11/11/14 5:39 AM) ALT [0-65 unit/L] 36 unit/L (11/11/14 5:39 AM) AST [0-37 unit/L] 59 unit/L (11/11/14 5:39 AM) Alk Phos [39-136 unit/L] 0.8 mg/dL (11/11/14 5:39 AM) Bili Total [0.2-1.3 mg/dL] 1Result Comment: The eGFR is calculated using [...] from the National Kid[employer] Education Program ( NKDEP) which additionally recommends that when the eGFR is used in patients with extremes of body mass index for purposes of drug dosing, the eGFR should be mul tiplied by the estimated BMI. 2Result Comment: The eGFR is calculated using [...] from the National Kid[employer] Education Program ( NKDEP) which additionally recommends that when the eGFR is used in patients with extremes of body mass index for purposes of drug dosing, the eGFR should be mul tiplied by the estimated BMI. 3Result Comment: The eGFR is calculated using [...] from the National Kid[employer] Education Program ( NKDEP) which additionally recommends that when the eGFR is used in patients with extremes of body mass index for purposes of drug dosing, the eGFR should be mul tiplied by the estimated BMI. 4Interpretive Data: Adult reference range values reflect the clinical guidelines of the [employer]. 5Interpretive Data: Adult reference range values reflect the clinical guidelines of the [employer]. 6Interpretive Data: Adult reference range values reflect the clinical guidelines of the [employer]. SPECIAL CHEMISTRY 1 2 3 Most recent to oldest [Reference Range]: 5.25 ng/mL 7 *HI* (11/03/14 4:28 PM) PSA [0.00-4.00 ng/mL] 7Interpretive Data: 0-4 ng/ml is clinically accepted reference range from the [employer] in 1997 for Total PSA. A PSA value in the range of 0.1 to 0.6 ng/mL is indeterminate if being used as an indicator of recurrent or residual disease. URINE AND STOOL 1 2 3 Most recent to oldest [Reference Range]: Clear (11/03/14 4:28 PM) UA Turbidity [Clear] Ltyellow *NA* (11/03/14 4:28 PM) UA Color 7.0 (11/03/14 4:28 PM) UA pH [5.0-8.0] 1.011 (11/03/14 4:28 PM) UA Spec Grav [<=1.030] Negative mg/dL *NA* (11/03/14 4:28 PM) UA Glucose [Negative mg/dL] Negative (11/03/14 4:28 PM) UA Blood [Negative] Negative mg/dL *NA* (11/03/14 4:28 PM) UA Ketones [Negative mg/dL] Negative mg/dL (11/03/14 4:28 PM) UA Protein [Negative mg/dL] <=1.0 mg/dL *NA* (11/03/14 4:28 PM) UA Urobilinogen [0.1-1.0 mg/dL] Negative *NA* (11/03/14 4:28 PM) UA Bili [Negative] Negative (11/03/14 4:28 PM) UA Leuk Est [Negative] Negative (11/03/14 4:28 PM) UA Nitrite [Negative] <1 /HPF (11/03/14 4:28 PM) UA WBC [0-5 /HPF] 2 /HPF (11/03/14 4:28 PM) UA RBC [0-2 /HPF] None Seen *NA* (11/03/14 4:28 PM) UA Sq Epi HEMATOLOGY 1 2 3 Most recent to oldest [Reference Range]: 7.8 K/CMM (11/11/14 5:39 AM) 11.1 K/CMM *HI* (11/10/14 6:56 PM) 6.6 K/CMM (11/03/14 4:28 PM) WBC [3.7-10.4 K/CMM] 3.68 M/CMM *LOW* (11/11/14 5:39 AM) 3.95 M/CMM *LOW* (11/10/14 6:56 PM) 4.14 M/CMM *LOW* (11/03/14 4:28 PM) RBC [4.70-6.10 M/CMM] 10.8 g/dL *LOW* (2/4/15 5:39 AM) 11.5 g/dL *LOW* (11/10/14 6:56 PM) 12.1 g/dL *LOW* (11/03/14 4:28 PM) Hgb [14.0-18.0 g/dL] 32.3 % *LOW* (11/11/14 5:39 AM) 34.5 % *LOW* (11/10/14 6:56 PM) 36.6 % *LOW* (11/03/14 4:28 PM) Hct [42.0-54.0 %] 87.8 fL (11/11/14 5:39 AM) 87.4 fL (11/10/14 6:56 PM) 88.5 fL (11/03/14 4:28 PM) MCV [80.0-94.0 fL] 29.3 pg (11/11/14 5:39 AM) 29.1 pg (11/10/14 6:56 PM) 29.3 pg (11/03/14 4:28 PM) MCH [27.0-31.0 pg] 33.4 g/dL (11/11/14 5:39 AM) 33.3 g/dL (11/10/14 6:56 PM) 33.1 g/dL (11/03/14 4:28 PM) MCHC [32.0-36.0 g/dL] 14.5 % (11/11/14 5:39 AM) 14.3 % (11/10/14 6:56 PM) 14.5 % (11/03/14 4:28 PM) RDW [11.5-14.5 %] 235 K/CMM (11/11/14 5:39 AM) 277 K/CMM (11/10/14 6:56 PM) 272 K/CMM (11/03/14 4:28 PM) Platelet [133-450 K/CMM] 7.5 fL (11/11/14 5:39 AM) 7.7 fL (11/10/14 6:56 PM) 9.0 fL (11/03/14 4:28 PM) MPV [7.4-10.4 fL] 68.5 % (11/11/14 5:39 AM) 48.9 % (11/03/14 4:28 PM) Segs [45.0-75.0 %] 21.7 % (11/11/14 5:39 AM) 38.7 % (11/03/14 4:28 PM) Lymphocytes [20.0-40.0 %] 9.0 % (11/11/14 5:39 AM) 9.2 % (11/03/14 4:28 PM) Monocytes [2.0-12.0 %] 0.3 % (11/11/14 5:39 AM) 2.3 % (11/03/14 4:28 PM) Eosinophils [0.0-4.0 %] 0.5 % (11/11/14 5:39 AM) 0.9 % (11/03/14 4:28 PM) Basophils [0.0-1.0 %] 5.4 K/CMM (11/11/14 5:39 AM) 3.2 K/CMM (11/03/14 4:28 PM) Segs-Bands # [1.5-8.1 K/CMM] 1.7 K/CMM (11/11/14 5:39 AM) 2.6 K/CMM (11/03/14 4:28 PM) Lymphocytes # [1.0-5.5 K/CMM] 0.7 K/CMM (11/11/14 5:39 AM) 0.6 K/CMM (11/03/14 4:28 PM) Monocytes # [0.0-0.8 K/CMM] 0.2 K/CMM (11/03/14 4:28 PM) Eosinophils # [0.0-0.5 K/CMM] 0.1 K/CMM (11/03/14 4:28 PM) Basophils # [0.0-0.2 K/CMM] Normal (11/03/14 4:28 PM) RBC Morph Normal (11/03/14 4:28 PM) Plt Morph 26.9 seconds 8 (11/10/14 6:56 PM) PTT [22.9-35.8 seconds] 8Interpretive Data: Heparin Therapeutic Range: 57 - 92 Seconds Medications Administered During Your Visit No data available for this section Immunizations No data available for this section Procedures Procedure Type Body Site Date of Procedure Related Diagnosis Arthroscopy of knee Social History Social History Type Response Alcohol Use: Never, Previous treatment: None Smoking Status Never smoker, Exposure to Tobacco Smoke None, Cigarette Smoking Last 365 Days No, Reg Smoking Cessation Counseling No Assessment and Plan Extracted from: Title: Clinical Document Author: Ghassna Plascencia MD Date: 11/12/14 Progress Daily [facility] Completed: , NOV 12, 2014, 08:58 by Ghassan Plascencia MD RM: 228 - 1P, SE [id number] (: 1960) M Attending: Ghassan Plascencia MDPhone: Service: Urology Service Reason for Admission: [id number] Working DRG: Malignancy, male reproductive system w/o CC/DETENTION Code status: None Specified=FULL CODECurrent diet: Isolation: None Documented Allergies: morphine, codeine SUBJECTIVE Pt doing well today. Has lots of flatus. Tolerating clears. Ambulating. Pain well controlled. No nausea. OBJECTIVE HEENT: normocephalic, atraumatic, extraocular movement intact, normal neck movement CV: RRR Resp: Normal respiratory effort GI: soft, NT, ND, Bowel Sounds Present, incisions c/d/i Skin: warm, well-perfused Extremities: moves all 4 ext within normal limits Neuro: CN2-12 without deficit Psych: A&O x3 ASSESSMENT & EXAM Doing well POD#2. Return of bowel function. Drain output minimal. No other issues. PLAN & TREATMENT D/c drain Home with Toro Follow up next week with cystogram prior to d/c DIAGNOSES & PROBLEMS Prostate cancer Ready for Discharge (Yes/No)? Toro still necessary (Yes/No): Line still necessary (Yes/No): (no lab data in past 24 hours) VitalsTmp(F)[id number] 11/12 07:41 67613--- 11/12 07:[id number]--- 11/12 05:[id number]--- 11/12 00:5298.187996/[id number]--- 11/11 20:41 [id number] 21% 24 Hr Tmax: 98.9F (37.17c) at 11/11 15:57Vital Signs are the last 5 in the past 48 hours. DateWt(kg)Wt(lb)Ht(cm)Ht(in)Method 11/03 (initial) 93.30 205.25Measured .64 66.00Stated I&ORecordInOutBal 11/423hr Tot 424 [id number] 11/323hr Tot 3881 2490 1391 Medications (14) Active Scheduled Meds (5): 11/10/14 acetaminophen (acetaminophen-10 mg/mL INTRAVENOUS solution) 1,000 mg IV Q6H 400 ml/hr 11/10/14 docusate (docusate sodium 100 mg oral capsule) 100 mg PO BID 11/11/14 enoxaparin 40 mg SUB-Q [id number] 11/10/14 famotidine 20 mg PO Q12H 11/11/14 ketorolac (ketorolac 30 mg/mL injectable solution) 30 mg IV Q6H Unscheduled Meds: None PRN Meds (8): 11/10/14 bisacodyl (Dulcolax Laxative) 5 mg PO Q24H 11/10/14 diphenhydrAMINE 25 mg PO Bedtime 11/10/14 hydromorphone 0.3 mg IVP Q3H 11/10/14 ondansetron 4 mg IVP Q6H 11/10/14 oxyCODONE (oxyCODONE 5 mg immediate release) 5 mg PO Q4H 11/10/14 promethazine + Sodium Chloride 0.9% IV 50 mL 12.5 mg IVPB Q4H 151.5 ml/hr 11/10/14 sodium chloride (Saline Flush 0.9%) 10 ml IVP PRN 11/10/14 zolpidem 5 mg PO Bedtime One Time Meds: None Continuous Infusions (1): 11/10/14 LVP solution with potassium 1,000 mL (D5NS + KCL 20mEq/L 1000ml (Premix) 1,000 mL) 1,000 mL 125 ml/hr
--- NOTE | 2018-08-23 17:31 | Operative Report ---
DATE OF PROCEDURE: August 23, 2018 REFERRING PHYSICIAN: Dr. John Barba. PROCEDURE PERFORMED: Colonoscopy and polypectomy. INDICATIONS FOR COLONOSCOPY: Surveillance colonoscopy, personal history of colon polyps. MEDICATION: Patient was done under MAC. Please see anesthesiologist's note. PROCEDURE: With the patient in the left decubitus position, flexible fiberoptic Olympus colonoscope was inserted into the rectum with ease and advanced all the way to the cecum. The scope was then withdrawn slowly. Mucosa overlying the cecum, ascending colon and transverse colon appeared to be within normal limits. One minute polyp was hot biopsied from the descending colon. The sigmoid grossly appeared to be within normal limits. One polyp was hot biopsied from the rectum. The scope was then retroflexed into the distal rectum and small internal hemorrhoids were noted, none of which was actively bleeding. The scope was then straightened out. It was subsequently withdrawn. Patient tolerated the procedure well. IMPRESSION: 1. Descending colon polyp, hot biopsied. 2. Rectal polyp, hot biopsied. 3. Internal hemorrhoids, none actively bleeding. PLAN: Follow up histology. Initiate high-fiber, low-fat diet. Initiate high-fiber supplement. Patient might benefit from a followup colonoscopy in 3 to 5 years. Job#: [id number] cc:JOHN BARBA M.D.
[2018-08-23 17:45] VITALS: BP 127/90
== END | disposition home or self-care (01) ==
LOC: ENDO 12:47
PROVIDERS: ATTEND Internal Medicine Gastroenterology
DX: Z09 Encounter for follow-up examination after completed treatment for conditions other than malignant neoplasm (principal); D12.4 Benign neoplasm of descending colon; K62.1 Rectal polyp; K64.8 Other hemorrhoids; I10 Essential (primary) hypertension; E78.5 Hyperlipidemia, unspecified; Z85.46 Personal history of malignant neoplasm of prostate; Z90.79 Acquired absence of other genital organ(s); Z88.5 Allergy status to narcotic agent
CPT/HCPCS: 45384; J2250

== ENCOUNTER → 2021-08-10 | Day surgery (SDC) | payer BC ==
[~2021-08-10] MED LIST changes: +METOCLOPRAMIDE HCL 10 MG/2ML VIAL ONE; +ONDANSETRON HCL INJ 2MG/ML 2ML 2 MG/ML VIAL ONE; +POVIDONE IODINE 0.05% 0.05 % ML PO ONE; +PROPOFOL IV EMULSION 10 MG/ML 20 ML VIAL ONE; -PROPOFOL IV EMULSION 10 MG/ML 50 ML VIAL ONE
[2021-08-10 10:50] VITALS: BP 132/94
== END | disposition home or self-care (01) ==
LOC: OR 08:34
PROVIDERS: ATTEND Internal Medicine Gastroenterology
DX: Z09 Encounter for follow-up examination after completed treatment for conditions other than malignant neoplasm (principal); D12.3 Benign neoplasm of transverse colon; K64.8 Other hemorrhoids; I10 Essential (primary) hypertension; Z88.6 Allergy status to analgesic agent; Z01.812 Encounter for preprocedural laboratory examination; Z20.822 Contact with and (suspected) exposure to COVID-19; Z79.82 Long term (current) use of aspirin; Z68.32 Body mass index [BMI] 32.0-32.9, adult
CPT/HCPCS: 45380; J2250; J2405; J2704; J2765; J3010; U0002; 45378

== ENCOUNTER → 2024-12-12 | Day surgery (SDC) | payer BC, MEDICARE ==
[2024-12-10 11:34] LABS: BASOPHILS # (AUTO) 0.1 (0.0-0.1); BASOPHILS % 0.3 % (0.0-1.0); EOSINOPHILS # (AUTO) 0.2 (0.0-0.4); EOSINOPHILS % 0.6 % (0.0-6.0); HEMATOCRIT 40.4 % (38.2-49.6); LYMPHOCYTES # (AUTO) 27.4 (1.0-3.2); LYMPHOCYTES % 88.6 % (18.0-39.1); MEAN CORPUSCULAR HEMOGLOBIN 27.7 pg (28-32); MEAN CORPUSCULAR HGB CONC 32.2 g/dL (31-35); MONOCYTES # (AUTO) 0.8 (0.2-0.8); MONOCYTES % 2.5 % (4.4-11.3); NEUTROPHILS # (AUTO) 2.5 (2.1-6.9); NEUTROPHILS % 7.9 % (38.7-80.0); PLATELET COUNT 234 x10e3/uL (140-360)
[2024-12-10 11:37] LABS: WHITE BLOOD COUNT 30.87 x10e3/uL (4.8-10.8)
[2024-12-10 12:15] LABS: ANISOCYTOSIS SLIGHT; EOSINOPHILS % (MANUAL) 1 % (0-7); HYPOCHROMASIA SLIGHT; LYMPHOCYTES % (MANUAL) 94 % (19-48); NEUTROPHILS % (MANUAL) 5 % (40-74); PLATELET ESTIMATE ADEQUATE; PLATELET MORPHOLOGY COMMENT NORMAL; SMUDGE CELLS FEW
[~2024-12-12] MED LIST changes: -FENTANYL CITRATE/PF 100MCG/2 ML INJ ONE; +GLUCAGON FOR INJ 1 MG VIAL ONE; +LIDOCAINE HCL 2% LOCAL INJ 5 ML SDV VIAL INJ ONE; -METOCLOPRAMIDE HCL 10 MG/2ML VIAL ONE; -MIDAZOLAM HCL 2 MG/2 ML VIAL ONE; -ONDANSETRON HCL INJ 2MG/ML 2ML 2 MG/ML VIAL ONE; -POVIDONE IODINE 0.05% 0.05 % ML PO ONE; -PROPOFOL IV EMULSION 10 MG/ML 20 ML VIAL ONE; +PROPOFOL IV EMULSION 50 ML IV ONE
[2024-12-12] MEDS: LACTATED RINGER'S 1,000 ML ONE (09:42)
[2024-12-12 09:56] LABS: BASOPHILS # (AUTO) 0.1 (0.0-0.1); BASOPHILS % 0.2 % (0.0-1.0); EOSINOPHILS # (AUTO) 0.3 (0.0-0.4); EOSINOPHILS % 0.9 % (0.0-6.0); HEMATOCRIT 40.8 % (38.2-49.6); HEMOGLOBIN 13.3 g/dL (14.0-18.0); LYMPHOCYTES % 83.4 % (18.0-39.1); MEAN CORPUSCULAR HEMOGLOBIN 27.4 pg (28-32); MEAN CORPUSCULAR HGB CONC 32.6 g/dL (31-35); MEAN CORPUSCULAR VOLUME 84.1 fL (81-99); MONOCYTES # (AUTO) 1.1 (0.2-0.8); NEUTROPHILS # (AUTO) 3.1 (2.1-6.9); NEUTROPHILS % 11.4 % (38.7-80.0); PLATELET COUNT 219 x10e3/uL (140-360); RED BLOOD COUNT 4.85 x10e6/uL (4.3-5.7); RED CELL DISTRIBUTION WIDTH 15.8 % (11.7-14.4); WHITE BLOOD COUNT 27.59 x10e3/uL (4.8-10.8)
[2024-12-12 12:20] VITALS: TEMP 98.1
[2024-12-12 12:50] VITALS: BP 123/79; PULSE 76; RESP 16; O2SAT 98
[2024-12-12 13:02] LABS: LYMPHOCYTES % (MANUAL) 87 % (19-48); MONOCYTES % (MANUAL) 3 % (3.4-9.0); NEUTROPHILS % (MANUAL) 9 % (40-74); PLATELET ESTIMATE ADEQUATE; PLATELET MORPHOLOGY COMMENT NORMAL; RBC MORPHOLOGY COMMENT NORMAL; REACTIVE LYMPHOCYTES 1
== END | disposition home or self-care (01) ==
LOC: OR 09:21
PROVIDERS: ATTEND Internal Medicine Gastroenterology
DX: Z09 Encounter for follow-up examination after completed treatment for conditions other than malignant neoplasm (principal); K63.5 Polyp of colon; K64.8 Other hemorrhoids; Z71.3 Dietary counseling and surveillance; G47.33 Obstructive sleep apnea (adult) (pediatric); I10 Essential (primary) hypertension; Z71.89 Other specified counseling; E78.5 Hyperlipidemia, unspecified; N20.0 Calculus of kidney; Z88.6 Allergy status to analgesic agent; Z01.810 Encounter for preprocedural cardiovascular examination; Z01.812 Encounter for preprocedural laboratory examination; Z79.899 Other long term (current) drug therapy; Z85.46 Personal history of malignant neoplasm of prostate; Z85.528 Personal history of other malignant neoplasm of kidney; Z68.31 Body mass index [BMI] 31.0-31.9, adult
CPT/HCPCS: 36415 ×2; 45385; 85025 ×2; 93005; J1610; J2003; J2704; J7121; 45378